=== PATIENT | male | born 1945 ===

== ENCOUNTER 2024-07-04 07:45 | Inpatient (IN) | payer OTHER ==
[~2024-07-04] VITALS: Ht 175.3 cm; Wt 89.8 kg
[2024-07-04 08:52] LABS: HEMATOCRIT 46.9 % (39.0-48.0); HEMOGLOBIN 15.4 g/dL (13-16.00); MEAN CELL VOLUME 83.1 fL (80.0-100.00); MEAN CORPUSCULAR HEMOGLOBIN 27.2 pg (27.00-32.0); MEAN CORPUSCULAR HGB CONC 32.7 g/dl (32.0-36.0); PLATELET COUNT 210 K/uL (150-450); RED BLOOD COUNT 5.65 M/uL (4.00-6.00); RED CELL DISTRIBUTION WIDTH 14.1 % (11.5-14.5)
[2024-07-04 08:55] VITALS: BP 150/90
[2024-07-04 09:01] LABS: URINE APPEARANCE Clear; URINE BILIRRUBIN Negative (NEGATIVE); URINE BLOOD Moderate; URINE COLOR Yellow; URINE GLUCOSE Negative (NEGATIVE); URINE KETONE Negative (NEGATIVE); URINE LEUKOCYTE Negative; URINE NITRATE Negative; URINE PROTEIN Negative (NEGATIVE); URINE UROBILINOGEN 0.2 E.U./dl
[2024-07-04 09:05] LABS: URINE BACTERIA 22.6 uL (0.0-1933); URINE EPITHELIAL CELLS 3.3 uL (0.0-38.8); URINE RBC 35.1 uL (0.0-20.8); URINE WBC 2.4 uL (0.0-23.2)
[2024-07-04 09:21] LABS: INR 1.09; PARTIAL THROMBOPLASTIN TIME 28.4 SECONDS (22.0-34.0); PROTHROMBIN TIME 11.8 SECONDS (9.0-11.5)
[2024-07-04 09:32] LABS: URINE CAST 0.15 uL (0.0-1.40)
[2024-07-04 09:59] LABS: ALBUMIN 4.1 gm/dL (3.4-5.0); BILIRUBIN TOTAL 0.87 mg/dL (0.3-1.2); CALCIUM 9.1 mg/dL (8.5-10.1); CREATININE SERUM 1.4 mg/dL (0.70-1.30); GFR 49.14; GLOBULINA 3.7 G/DL (2.4-3.5); POTASSIUM 4.43 mEq/L (3.5-5.1); TOTAL PROTEIN 7.8 gm/dL (6.4-8.2)
[2024-07-04 10:36] LABS: RH POSITIVE
[2024-07-09] MEDS ORDERED: CEFAZOLIN SODIUM 1,000 MG VIAL IV ONE (09:00)
[2024-07-09] MEDS ORDERED: TRANEXAMIC ACID 100MG/1ML (1000MG) AMPUL IV ONE ×2 (09:00)
[2024-07-09] MEDS ORDERED: KETOROLAC TROMETHAMINE 60 MG VIAL IM ONE (09:00)
[2024-07-09] MEDS ORDERED: ISOPROPYL ALCOHOL 30 ML OUNCE TOP ONE (09:00)
[2024-07-09] MEDS ORDERED: POLYMYXIN B SULFATE 500,000 U VIAL IR ONE (09:00)
[2024-07-09] MEDS ORDERED: VANCOMYCIN HCL 1,000 MG VIAL IR ONE (09:00)
[2024-07-09] MEDS ORDERED: MORPHINE SULFATE 4 MG/ML VIAL IV ONE (09:00)
[2024-07-09] MEDS ORDERED: MORPHINE SULFATE 2 MG/ML CARTRIDGE IV NR (10:30)
[2024-07-09] MEDS ORDERED: ONDANSETRON HCL 2 MG/ML VIAL IV PRN (10:30)
[2024-07-09] MEDS ORDERED: SODIUM CHLORIDE 0.45 % 1,000 ML IV SCH (10:30)
[2024-07-09] MEDS ORDERED: MORPHINE SULFATE 4 MG/ML CARTRIDGE IV PRN (10:30)
[2024-07-09] MEDS ORDERED: CEFAZOLIN SODIUM 1,000 MG VIAL IV SCH (12:00)
[2024-07-09 12:06] LABS: HEMATOCRIT 41.5 % (39.0-48.0); HEMOGLOBIN 13.4 g/dL (13-16.00); RED BLOOD COUNT 4.97 M/uL (4.00-6.00)
[2024-07-09 14:50] VITALS: BP 126/82; O2SAT 96
[2024-07-10 01:48] VITALS: BP 119/78; O2SAT 95
[2024-07-10 06:52] LABS: HEMATOCRIT 37.7 % (39.0-48.0); HEMOGLOBIN 12.4 g/dL (13-16.00); MEAN CELL VOLUME 83.4 fL (80.0-100.00); MEAN CORPUSCULAR HEMOGLOBIN 27.4 pg (27.00-32.0); MEAN CORPUSCULAR HGB CONC 32.8 g/dl (32.0-36.0); PLATELET COUNT 147 K/uL (150-450); RED BLOOD COUNT 4.52 M/uL (4.00-6.00); RED CELL DISTRIBUTION WIDTH 14.7 % (11.5-14.5)
[2024-07-10] MEDS ORDERED: ACETAMINOPHEN WITH CODEINE 1 UDTAB TABLET PO PRN (08:15)
[2024-07-10] MEDS ORDERED: RIVAROXABAN 10 MG TAB PO SCH (09:00)
[2024-07-10] MEDS ORDERED: SENNA/DOCUSATE SODIUM 1 TAB TABLET PO SCH (09:00)
[2024-07-10] MEDS ORDERED: IRON FUM,PS/FOLIC/BCOMP,C NO.9 1 CAP CAPSULE PO SCH (09:00)
[2024-07-10] MEDS ORDERED: BACITRACIN 28.35 GM OINT.TUBE TOP SCH (09:00)
[2024-07-10 18:11] VITALS: BP 134/81; O2SAT 95
[2024-07-11 00:10] VITALS: BP 146/83; O2SAT 98
[2024-07-11 06:49] LABS: HEMATOCRIT 38.3 % (39.0-48.0); HEMOGLOBIN 12.5 g/dL (13-16.00); MEAN CELL VOLUME 82.9 fL (80.0-100.00); MEAN CORPUSCULAR HEMOGLOBIN 27.1 pg (27.00-32.0); MEAN CORPUSCULAR HGB CONC 32.7 g/dl (32.0-36.0); PLATELET COUNT 153 K/uL (150-450); RED BLOOD COUNT 4.62 M/uL (4.00-6.00); RED CELL DISTRIBUTION WIDTH 14.3 % (11.5-14.5)
[2024-07-11] MEDS ORDERED: Septra Ds Tablet PO (07:53)
[2024-07-11] MEDS ORDERED: INTEGRA PLUS C1 EACH PO (07:53)
[2024-07-11] MEDS ORDERED: ACETAMINOPHEN-1 EAC2 PO (07:54)
[2024-07-11] MEDS ORDERED: XARELTO10 MG PO (07:54)
[2024-07-11 08:00] VITALS: BP 130/84; O2SAT 95
[2024-07-11] MEDS ORDERED: SULFAMETHOXAZOLE/TRIMETHOPRIM DS 1 TAB PO SCH (09:00)
[2024-07-11 16:00] VITALS: BP 142/97; O2SAT 97
== END 2024-07-11 20:51 | DRG 470 ==
LOC: O/R 07-09 05:50 → SURH 07-09 07:45 → SURG 07-09 11:47
PROVIDERS: ADMIT Orthopaedic Surgery Sports Medicine; ATTEND Orthopaedic Surgery Sports Medicine
PROC: 0SRD0J9 Replacement of Left Knee Joint with Synthetic Substitute, Cemented, Open Approach (ICD-10-PCS; principal; 2024-07-09 11:30)
DX: M17.12 Unilateral primary osteoarthritis, left knee (principal); I10 Essential (primary) hypertension